=== PATIENT | male | born 1970 | race Caucasian/White ===

== ENCOUNTER → 2020-09-12 16:25 | Outpatient (CLI) | payer BC, SELFPAY ==
--- NOTE | 2020-09-12 | IMM_PTH ---
PATIENT: KD FLORES LOC: [facility] U#:[id number] AGE/SX: 54/M ROOM: RE09/12/[address]: Dr. Kd Tabor MD : 1970 BED: DIS: SPEC #: [id number] RECD: 09/17/20 11:43 STATUS: GERSON REQ #: [id number] BING: 09/12/20 00:[address]: Kd Tabor DEPT: IMMUNOHISTOCHEMISTRY RECD BY: Argentina Cortez ENTERED: 09/17/20 11:45 SP TYPE: IMMUNO OTHR DR: Dr. Kodi López DO Tissues: Skin of external ear, NOS Procedures: SMA (add) CD31 (add) CD34 (add) CD45 (add) CK20 (add) CK5-6 (add) CK7 (add) CK8 (add) DESMIN (add) KI-67 (add) P53 (add) Vimentin (add) FACTOR VIII (add) Pankeratin (initial) MELAN-A (add) P40 (add) S-100 (add) [facility]YSIC[facility] IN[facility] [address] [address] SPECIMEN INFORMATION: Tissue Source: Ear biopsy Clinical Info: Ear lesion Specimen Number: [id number] CPT code: 01330, 88861 x16 METHODOLOGY: Deparaffinized sections of prefer/formalin-fixed tissue or PAP/DQ stained slides are incubated with monoclonal/polyclonal antibodies/oligonucleotide probes. Localization is made via biotin free immunoperoxidase method. Appropriate controls are performed and reacted as expected. Results on target cell population are indicated in the following table: RESULTS: ANTIBODY / CLONE RESULT AE1-3 (AE1/AE3/PCK26) negative CK7 (OV-TL12/30) negative CK8 (87xanzU78) negative CK20 (KS20.8) negative CD45 (RP2/18) negative Vimentin (V9) positive Melan A (A103) negative S-100 (4C4.9) negative CK5-6 (D5 & 1684) negative P40 (BC28) negative Actin (1A4) negative Desmin (CE-R-11) negative CD31 (CHAZ/70A) positive CD34 (QBEnd-10) negative Factor VIII (R Ag) negative Ki-67 (30-9) positive, low P53 (DO-7) negative These tests were developed and their performance characteristics determined by [facility]. They may not have been cleared or approved by the [place]. Food and Drug Administration. The FDA has determined that such clearance or approval is not necessary. The above immunohistochemical/dualISH markers are ordered and reviewed by the Pathologist. INTERPRETATION: Ear lesion, biopsy: Fragments of skin with features compatible with granulomatous dermatitis. See comment. SJ:bessie 10/02/2020 The specimen is sent to [facility] for expert opinion, reviewed by Dr. Dixon and the above diagnosis is rendered. Additional immunohistochemical stains were also performed at [facility]. The complete report is viewable in the patient's EMR. Case has been reviewed in consultation with Dr. Moon who concurs with the above diagnosis. IDC:AM
--- NOTE | 2020-09-12 16:00 | TISS_PTH ---
PATIENT: KD FLORES LOC: [facility] U#:[id number] AGE/SX: 54/M ROOM: RE09/12/[address]: Dr. Kd Tabor MD : 1970 BED: DIS: SPEC #: [id number] RECD: 09/12/20 16:44 STATUS: GERSON REMarian #: [id number] BING: 09/12/20 16:[address]: Kd Tabor DEPT: SURGICAL PATHOLOGY RECD BY: Angel Luis Quan ENTERED: 09/13/20 20:42 SP TYPE: Tissue Bx ALEXEY DR: Dr. Kodi López, Tissues: TISSUE SURGICALLY REMOVED Procedures: Surgery Specimen Level IV HEADER OPERATION: Ear biopsy PRE-OP DIAGNOSIS: Ear lesion TISSUE SUBMITTED: Ear lesion MICROSCOPIC DIAGNOSIS Ear lesion, biopsy: Fragments of skin with features compatible with granulomatous dermatitis. See comment. SANTA:bessie 10/02/2020 COMMENT Immunohistochemistry ([id number]) supports the above diagnosis. The findings are not entirely specific. The features may be seen in but not limited to infectious, secondary reactive changes to a ruptured follicular unit (cyst or follicle) or foreign body in the appropriate clinical setting. A portion of a xanthoma is less likely. CD68 and CD163 immunostains highlight the predominantly histiocytic nature of the dermal process. Special stains for fungal organisms (PAS and GMS stains) and acid-fast bacteria are negative. No evidence of polarizable foreign material is identified. ERG, CD45, CD138, CAM 5.2 and CD1A immunostains are unrevealing. The provided immunostains (KI-67, Factor VIII, P53, CD31, S100, SMA, CD34, MAC, Desmin, Vimentin, Pancytokeratin, CK8 and MART-1) are reviewed. If this biopsy is a part of a larger lesion, the findings in this specimen may not be enrollment eligibility representative of the entire lesion. Please correlate with clinical circumstance. Multiple level sections have been examined. The specimen is sent to [facility] for expert opinion, reviewed by Dr. Dixon and the above diagnosis is rendered. The complete report is viewable in the patient's EMR. Re-biopsy or excision of the lesion is suggested, if clinically indicated for definite diagnosis. This case is discussed with Dr. Tabor on 09/19/20. Case has been reviewed in consultation with Dr. Moon who concurs with the above diagnosis. IDC:AM MICROSCOPIC DESCRIPTION Slides are reviewed. GROSS DESCRIPTION Received in fixative is one container labeled with the patient's name and designated ear biopsy. The specimen consists of multiple irregular fragments of rocha soft tissue that in aggregate measure 1 x 0.5 x 0.1 cm. The specimen is totally submitted in one cassette. / SJ:rg 09/16/20 TC:5 CPT: 30111
== END ==
PROVIDERS: PCP Family Medicine; Referring Provider Otolaryngology; Visit Provider Otolaryngology
DX: D48.5 Neoplasm of uncertain behavior of skin (principal)
CPT/HCPCS: 88305; 88341; 88342

== ENCOUNTER → 2020-10-08 09:02 | Outpatient (CLI) | payer BC, SELFPAY ==
--- NOTE | 2020-10-08 09:15 | EKG12_ITS ---
Test Reason : PRE OP Blood Pressure : / mmHG Vent. Rate : 045 BPM Atrial Rate : 045 BPM P-R Int : 170 ms QRS Dur : 088 ms QT Int : 464 ms P-R-T Axes : 053 042 037 degrees QTc Int : 401 ms Sinus bradycardia Otherwise normal ECG Confirmed by BANG MURPHY, LEIDY ([id number]), development editor MILLIE MEDINA ([id number]) on 10/09/2020 12:24:44 PM Referred By: Ruben Tabor Confirmed By:LEIDY CUENCA MD
[2020-10-08 09:24] LABS: Hematocrit 44.7 % (40-54); Mean Corp Hgb Conc 33.6 g/dL (32-36); Mean Corpuscular Hgb 30.3 pg (27.0-32.0); Mean Corpuscular Volume 90.3 fL (80-94); Mean Platelet Vol. 10.5 fl (6.2-12.0); Platelet Count 209 K/mm3 (150-450); RBC Distribution Width CV 12.3 % (11.6-14.6); RBC Distribution Width SD 40.5 fl (35.1-43.9); Red Blood Count 4.95 M/mm3 (4.6-6.2)
[2020-10-08 09:53] LABS: Anion Gap 1 (5-15); BUN 18 mg/dL (7-18); BUN/Creat Ratio 21.7 RATIO (10-20); Calcium,Total 9.3 mg/dL (8.5-10.1); Chloride 106 mmol/L (98-107); Creatinine, Serum 0.83 mg/dL (0.70-1.30); EST Glomerular Filtration Rate 104 mL/min (>60); Est Glom Filt Rate - Afr Amer 126 mL/min (>60); Glucose 86 mg/dL (74-106); Potassium 4.2 mmol/L (3.5-5.1); Sodium Level 139 mmol/L (136-145)
== END ==
PROVIDERS: PCP Family Medicine; Referring Provider Otolaryngology; Visit Provider Otolaryngology
DX: R22.9 Localized swelling, mass and lump, unspecified (principal)
CPT/HCPCS: 36415; 80048; 85027; 93005

== ENCOUNTER → 2020-10-14 15:27 | Outpatient (CLI) | payer BC, SELFPAY ==
--- NOTE | 2020-10-14 | MASS_PTH ---
PATIENT: KD FLORES LOC: [facility] U#:[id number] AGE/SX: 54/M ROOM: RE10/14/[address]: Dr. Kd Tabor MD : 1970 BED: DIS: SPEC #: [id number] RECD: 10/14/20 14:00 STATUS: GERSON VERAMarian #: [id number] BING: 10/14/20 00:[address]: Kd Tabor DEPT: SURGICAL PATHOLOGY RECD BY: Kobi Upton ENTERED: 10/15/20 07:53 SP TYPE: Mass OTHR DR: Dr. Kodi López, [facility] Tissues: Ear, NOS Procedures: Special Stain Group I Surgery Specimen Level IV AFB Stain (control) GMS Stain (control) HEADER OPERATION: Excision right ear mass PRE-OP DIAGNOSIS: Neoplasm TISSUE SUBMITTED: Right ear mass MICROSCOPIC DIAGNOSIS Right ear mass, biopsy: Benign histiocytic proliferation with associated chronic inflammation and focal acute inflammation. Negative for acid-fast bacilli and GMS stains. See comment. AM:bessie 10/16/2020 COMMENT The findings are consistent with granulomatous dermatitis and may represent rupture of epidermal inclusion cyst with associated reparative and reactive change. AFB and GMS stains with matched controls were used in the evaluation of this case. Please refer to previous biopsy of same lesion ([id number]) with similar findings. Case has been reviewed in consultation with Dr. Ortiz who concurs with the above diagnosis. IDC:SANTA MICROSCOPIC DESCRIPTION Slides are reviewed. GROSS DESCRIPTION Received in fixative is one container labeled with the patient's name and designated right ear mass. The specimen consists of three variable sized pieces of soft tissue measuring in aggregate 1.7 x 0.9 x 0.3 cm. The entire specimen is submitted in one cassette. / SANTA:bessie 10/15/20 TC:2 CPT: 13597, 29206 x2
== END ==
PROVIDERS: PCP Family Medicine; Referring Provider Otolaryngology; Visit Provider Otolaryngology
DX: H93.8X1 Other specified disorders of right ear (principal)
CPT/HCPCS: 88305; 88312